=== PATIENT | male | born 1945 | race Caucasian/White ===

== ENCOUNTER 2017-04-08 13:16 | Emergency (ER) | payer OTHER ==
--- NOTE | ~2017-04-08 | EKG ---
PATIENT: NITZA FULLER UNIT #: [id number] Ventricular Rate: 97 BPM Atrial Rate: 68 BPM QRS Duration: 84 ms Q-T Interval: 386 ms QTC Calculation(Bezet): 490 ms Calculated R [place]: 83 degrees Calculated T [place]: 154 degrees Diagnosis Line: Atrial fibrillation Diagnosis Line: Nonspecific ST and T wave abnormality , probably Diagnosis Line: digitalis effect Diagnosis Line: Prolonged QT Diagnosis Line: Abnormal ECG Diagnosis Line: When compared with ECG of 27-JUL-2016 06:51, Diagnosis Line: Nonspecific T wave abnormality now evident in Diagnosis Line: Inferior leads Diagnosis Line: Nonspecific T wave abnormality now evident in Diagnosis Line: Anterior leads Diagnosis Line: Confirmed by MADHAVI PATEL MD ([id number]) on Diagnosis Line: 04/11/2017 8:03:21 AM INTERPRETING MD: JORGE WHITE
--- NOTE | ~2017-04-08 | CR72 ---
[facility]. [facility] A Service of [facility] & [facility] RADIOLOGY TEXT RESULTS PATIENT: NITZA FULLER LOCATION: SED : 45 UNIT #: [id number] AGE: [address]: Jose Baum MD SEX: M ORDER DR: [id number] [place] [id number] E MR#: [id number] Acc #: [id number] NAME: NITZA FULLER. : 1945 SEX: M STUDY DATE/TIME: 04/08/2017 14:18 UNIT: SED ROOM: STUDY DESCRIPTION: CR Chest Single View Portable Attending Physician: Jose Baum M.D. Ordering Physician: Jose Baum M.D. Primary Care Physician: Benjamin Pulliam M.D. MEDICAL IMAGING REPORT This report is preliminary unless electronic signature is present. EXAM Portable chest INDICATIONS Chest pain and shortness of air for 2 days. FINDINGS A portable upright view of the chest is obtained. The heart size is upper limits of normal. The vascularity is normal and the lungs are clear. There are sternotomy wires present. IMPRESSION No active disease. Dictated by... Jose Hansen M.D. THIS IS AN ELECTRONICALLY VERIFIED REPORT Jose Hansen M.D. at 04/09/2017 1:29 PM FEL/psc TD: 04/08/2017 21:55 JOB #: [id number] MEDICAL IMAGING REPORT Page 1 of 1
[~2017-04-08 13:16] MED LIST: ASPIRIN81 MG PO; CLOPIDOGREL75 MG PO; K-DUR10 MEQ PO; K-DUR20 ME2 PO; LASIX PO; LOPRESSOR PO; NITROGLYGERIN0.4 MG SL; RANEXA500 MG PO; ZETIA PO
[2017-04-08 14:00] LABS: POC - CKMB 25.4 ng/mL (0.0-7.9); POC - TROPONIN 18.9 ng/mL (<=0.05)
[2017-04-08 14:15] LABS: BASOPHIL% 0.4 % (0-2.5); EOSINOPHIL% 0.5 % (0.0-7.0); HEMATOCRIT 37.3 % (38.0-50.0); HEMOGLOBIN 12.9 gm/dL (13.0-16.0); LYMPHOCYTE# 1.4 X10e3 (1.0-3.5); LYMPHOCYTE% 16.4 % (17.0-45.0); MEAN CELL VOLUME 96.8 FL (83-96); MEAN CORPUSCULAR HEMOGLOBIN 33.4 PG (28-34); MEAN CORPUSCULAR HGB CONC 34.5 g/dL (30-36); MEAN PLATELET VOLUME 7.9 FL (6.5-11.5); MONOCYTE# 0.7 X10e3 (0-1.0); MONOCYTE% 7.9 % (3.0-12.0); NEUTROPHIL# 6.4 X10e3 (1.5-7.1); NEUTROPHIL% 74.8 % (40-75); PLATELET COUNT 181 X10e3 (140-420); RED BLOOD COUNT 3.86 X10e (3.90-5.60); RED CELL DISTRIBUTION WIDTH 14.3 % (11.0-15.5); WHITE BLOOD COUNT 8.6 X10e3 (4.0-10.5)
[2017-04-08 14:16] LABS: DIFF IND NO
[2017-04-08 14:35] LABS: INR 1.6; PROTHROMBIN TIME (PATIENT) 17.6 SECONDS (9.5-12.4)
[2017-04-08 14:37] LABS: ALBUMIN SERUM 3.8 g/dL (3.5-5.0); BILIRUBIN, DIRECT 0.2 mg/dL (0.0-0.2); BILIRUBIN,INDIRECT 0.8 mg/dL (0.0-0.9); BUN/CREATININE RATIO 18.75; CALCIUM SERUM 8.7 mg/dL (8.4-10.2); CREATININE SERUM 1.6 mg/dL (0.6-1.4); GLOM FILT RATE Estimated 42.4 mL/min (>60); POTASSIUM 3.5 mmol/L (3.5-5.1); PROTEIN TOTAL SERUM 7.2 g/dL (6.0-8.3)
[2017-04-08 14:42] LABS: PARTIAL THROMBOPLASTIN TIME 27.6 SECONDS (25.6-38.1)
== END 2017-04-08 14:55 ==
LOC: SED 13:16
PROVIDERS: Emergency Medicine
DX: I21.4 Non-ST elevation (NSTEMI) myocardial infarction (principal); K21.9 Gastro-esophageal reflux disease without esophagitis; E78.5 Hyperlipidemia, unspecified; I10 Essential (primary) hypertension; Z90.49 Acquired absence of other specified parts of digestive tract; Z87.891 Personal history of nicotine dependence
CPT/HCPCS: 36415; 71010; 80048; 80076; 82553; 83874; 83880; 84484; 85025; 85610; 85730; 93005; 96361; 96374; 99285; J1644; J1940